=== PATIENT | female | born 1960 | race Caucasian/White ===

== ENCOUNTER 2018-04-23 10:42 | Emergency (ER) | payer BC ==
--- NOTE | 2018-04-23 11:24 | ED ---
HPI Chest Pain - HPI Summary HPI Summary: This is Reina ayon, documenting for attending Dolly Woodall MD. This patient is a 57 year old F presenting to [facility] with a chief complaint of waxing and waning pressure like left sided chest pain that radiates to the left shoulder and left arm for the past two weeks. Pain is 6/10 in severity, at its worse; pain is 4/10 at triage. Denies recent cold, n/v/d, epigastria/abdominal pain, and urinary symptoms. Denies hx of chest pain. Medications include Synthroid. FMHx involving MA in her mother at age 70, and MA and multiple CVA in her brother in his 50s. - History of Current Complaint Chief Complaint: EDChestWallPain Time Seen by Provider: 04/23/18 11:04 Hx Obtained From: Patient Onset/Duration: Started Weeks Ago Timing: Intermittent Pain Intensity: 4 Pain Scale Used: 0-10 Numeric Chest Pain Location: Left Anterior Chest Pain Radiates: Yes Chest Pain Radiates To:: Shoulder, Arm Character: Pressure/Squeezing Aggravating Factor(s): Nothing Alleviating Factor(s): Nothing Associated Signs and Symptoms: Positive: Chest Pain. Negative: Nausea, Abdominal Pain, Vomiting - Allergy/Home Medications Allergies/Adverse Reactions: Allergies Allergy/AdvReac Type Severity Reaction Status Date / Time No Known Allergies Allergy Verified 04/23/18 10:48 Home Medications: Home Medications NK [No Home Medications Reported] 04/23/18 [History Confirmed 04/23/18] PMH/Surg Hx/FS Hx/Imm Hx Endocrine/Hematology History: Reports: Hx Thyroid Disease Cardiovascular History: Denies: Hx Hypertension Neurological History: Denies: Hx CVA Infectious Disease History: No Infectious Disease History: Denies: Traveled Outside the [place] in Last 30 Days - Family History Known Family History: Positive: Cardiac Disease - mother and brother MA, Other - brother - CVA - Social History Alcohol Use: Daily Alcohol Amount: 2 Substance Use Type: Reports: None Smoking Status (MU): Never Smoked Tobacco Review of Systems Constitutional: Negative - recent cold Positive: Chest Pain Negative: Abdominal Pain, Vomiting, Diarrhea, Nausea Positive: no symptoms reported Positive: Myalgia - left shoulder and arm All Other Systems Reviewed And Are Negative: Yes Physical Exam - Summary Physical Exam Summary: Appearance: Well-appearing, Well-nourished Skin: Warm Eyes: Normal ENT: Normal Neck: Supple, nontender Respiratory: Clear to auscultation Cardiovascular: Regular rate, regular rhythm. Normal S1, S2. Mild systolic murmur 2/5 Abdomen: Soft, nontender Musculoskeletal: Normal, Strength/ROM Intact Neurological: Normal, A&Ox3 Psychiatric: Normal General: No acute distress Triage Information Reviewed: Yes Vital Signs On Initial Exam: Initial Vitals Temp Pulse Resp BP Pulse Ox 98.2 F 82 16 178/77 99 04/23/18 10:46 04/23/18 10:46 04/23/18 10:46 04/23/18 10:46 04/23/18 10:46 Vital Signs Reviewed: Yes Diagnostics - Vital Signs Vital Signs Temp Pulse Resp BP Pulse Ox 04/23/18 10:46 98.2 F 82 16 178/77 99 - Laboratory Result Diagrams: 04/23/18 12:07 04/23/18 12:07 Lab Statement: Any lab studies that have been ordered have been reviewed, and results considered in the medical decision making process. - Radiology CXR Radiology Interpretation Completed By: Radiologist - NO ACTIVE CARDIOPULMONARY DISEASE. ED Physician has reviewed this report. - EKG 10:54 Cardiac Rate: NL - at 71 Bpm EKG Rhythm: Sinus Rhythm EKG Interpretation: no STT changes or T wave inversions Chest Pain Course/Dx - Course Course Of Treatment: pt is a low to moderate risk for adverse cardiac event due to her history, age and family history, her troponin x 2 sets negative without EKG changes and will need follow up with her PCP and cardiology for an outpt stress test - Chest Pain Differential Diagnosis/HQI/PQRI: ACS, Angina, GI Disease - Diagnoses Provider Diagnoses: Chest pain at rest Discharge - Sign-Out/Discharge Documenting (check all that apply): Patient Departure - Discharge Plan Condition: Stable Disposition: HOME Referrals: Kathy Morales DO [Primary Care Provider] - Additional Instructions: PLEASE FOLLOW UP WITH YOUR PCP SOON POSSIBLE FOR A STRESS TEST TO EVALUATE FOR ANY CARDIAC CAUSES OF YOUR CHEST PAIN - Billing Disposition and Condition Condition: STABLE Disposition: Home
--- NOTE | 2018-04-23 11:57 | RAD ---
HISTORY: Chest pain COMPARISONS: None VIEWS: 1: frontal portable view of the chest at 11:37 AM FINDINGS: LINES AND TUBES: None. CARDIOMEDIASTINAL SILHOUETTE: The cardiomediastinal silhouette is normal for portable technique. PLEURA: The costophrenic angles are sharp. No pleural abnormalities are noted. LUNG PARENCHYMA: The lungs are clear. ABDOMEN: The upper abdomen is clear. There is no subphrenic gas. BONES AND SOFT TISSUES: No bone or soft tissue abnormalities are noted. IMPRESSION: NO ACTIVE CARDIOPULMONARY DISEASE.
[2018-04-23 12:19] LABS: ABS Basophils 0 10^3/ul (0-0.2); ABS Eosinophils 0.1 10^3/ul (0-0.6); ABS Lymphocytes 1.4 10^3/ul (1.0-4.8); ABS Monocytes 0.5 10^3/ul (0-0.8); ABS Neutrophils 3.8 10^3/ul (1.5-7.7); ABS Nucleated RBC 0 10^3/ul; Eosinophil % 1.3 % (0-6); Hematocrit 43 % (35-47); Hemoglobin 14.4 g/dl (12.0-16.0); Lymphocyte % 24.2 % (25-47); Mean Corpuscular HGB Conc 34 g/dl (31-36); Mean Corpuscular Hemoglobin 32 pg (27-31); Mean Corpuscular Volume 95 fL (80-97); Mean Platelet Volume 7.3 um3 (7.4-10.4); Nucleated Red Blood Cells % 0.1; Platelet Count 217 10^3/ul (150-450); Red Blood Count 4.48 10^6/ul (4.00-5.40); Red Cell Distribution Width 14 % (10.5-15); White Blood Count 5.9 10^3/ul (3.5-10.8)
[2018-04-23 12:39] LABS: EGFR Non-African American 62.1 (>60)
[2018-04-23] MEDS ORDERED: Nitroglycerin TAB 0.4 MG* 0.4 MG TAB SL ONE (13:13)
[2018-04-23] MEDS ORDERED: Aspirin 81 mg CHEW TAB* 81 MG TAB.CHEW PO ONE (13:14)
[2018-04-23 17:45] VITALS: BP 162/83
== END 2018-04-23 17:44 | disposition home or self-care (01) ==
LOC: ED 10:42
DX: R07.89 Other chest pain (principal); M25.512 Pain in left shoulder; Z82.49 Family history of ischemic heart disease and other diseases of the circulatory system; Z82.3 Family history of stroke
CPT/HCPCS: 36415; 71045; 80053; 84484; 85025; 93005; 99282; A9270-GY